=== PATIENT | male | born 2000 | race Two or more races ===

== ENCOUNTER 2022-03-11 08:02 | Emergency (ER) | payer OTHER ==
[~2022-03-11] VITALS: Ht 182.9 cm; Wt 104.0 kg
[2022-03-11 08:47] VITALS: BP 123/67
[2022-03-11 08:59] LABS: Urine Bacteria NONE SEEN /hpf (None Seen); Urine Blood Negative /uL (Negative); Urine Specific Gravity 1.019 (1.001-1.035); Urine WBC <1 /hpf (0 - 3)
[2022-03-11] MEDS ORDERED: KETOROLAC TROMETH 60MG/2ML VIAL IM ONE (09:00)
[2022-03-11] MEDS ORDERED: IBUP800T27 PO (09:13)
[2022-03-11] MEDS ORDERED: METH750T22 PO (09:13)
== END 2022-03-11 09:17 | disposition home or self-care (01) ==
LOC: ER 08:02
DX: S39.012A Strain of muscle, fascia and tendon of lower back, initial encounter (principal); M62.838 Other muscle spasm; X58.XXXA Exposure to other specified factors, initial encounter; Y93.89 Activity, other specified; Y92.89 Other specified places as the place of occurrence of the external cause; Y99.8 Other external cause status
CPT/HCPCS: 81001; 96372; 99283; J1885

== ENCOUNTER 2022-03-26 11:57 | Emergency (ER) | payer OTHER ==
[~2022-03-26 11:57] MED LIST: IBUP800T27 PO; METH750T22 PO
== END 2022-03-26 12:08 | disposition left against medical advice (07) ==
LOC: ER 11:57
DX: M54.9 Dorsalgia, unspecified (principal); Z53.21 Procedure and treatment not carried out due to patient leaving prior to being seen by health care provider

== ENCOUNTER 2022-05-15 11:53 | Emergency (ER) | payer MEDICAID, OTHER ==
[~2022-05-15] VITALS: Ht 180.3 cm; Wt 104.9 kg
[2022-05-15 14:07] VITALS: BP 120/66
[2022-05-15] MEDS ORDERED: AMOX-277 PO (14:07)
[2022-05-15] MEDS ORDERED: PRED20TA2 PO (14:07)
== END 2022-05-15 14:30 | disposition home or self-care (01) ==
LOC: ER 11:53
DX: H66.91 Otitis media, unspecified, right ear (principal); J03.90 Acute tonsillitis, unspecified

== ENCOUNTER 2024-02-24 18:47 | Emergency (ER) | payer SELFPAY ==
[~2024-02-24] VITALS: Ht 185.4 cm; Wt 95.2 kg
[~2024-02-24 18:47] MED LIST changes: +AMOX875T4 PO; +IBUP-1456 PO; -IBUP800T27 PO; +METH-1182 PO; -METH750T22 PO; +PRED20TA2 PO
[2024-02-24 19:43] LABS: Basophils # (auto) 0 10 ^3/uL (0-0.2); Basophils % (auto) 0.1 % (0.0-2.0); Eosinophils # (auto) 0 10 ^3/uL (0-0.8); Eosinophils % (auto) 0.1 % (0.0-7.0); Hematocrit 42.8 % (41.0-53.0); Hemoglobin 15.4 g/dL (13.5-17.5); Lymphocytes # (auto) 1.5 10 ^3/uL (0.4-5.4); Lymphocytes % (auto) 16.1 % (10.0-50.0); Mean Corpuscular Hemoglobin 29.6 pg (28.0-32.0); Mean Corpuscular Hgb Conc. 35.9 g/dL (32.0-36.0); Mean Corpuscular Volume 82.5 fL (80.0-100.0); Monocytes # (auto) 0.8 10 ^3/uL (0-1.3); Monocytes % (auto) 8.8 % (0.0-12.0); Neutrophils % (auto) 74.9 % (37.0-80.0); Nucleated Red Blood Cells % 0.1 %; Platelet Count (auto) 267 10^3/uL (140-450); Red Blood Cells 5.18 10^6/uL (4.5-5.90); Red Cell Distribution Width 13.5 % (11.8-14.3); White Blood Cell 9.4 10^3/uL (4.4-10.8)
[2024-02-24 19:58] LABS: Alanine Aminotransferase 19 U/L (7-40); Albumin 4.9 g/dL (3.2-4.8); Alkaline Phosphatase 58 U/L (46-116); Anion Gap 10 (5-15); Aspartate Aminotransferase 14 U/L (13-40); BUN/Creatinine Ratio 7.4 (10.0-20.0); Blood Urea Nitrogen 7 mg/dL (9-23); Calcium 9.9 mg/dL (8.7-10.4); Carbon Dioxide 23 mmol/L (20-30); Chloride 105 mmol/L (98-107); Glucose 111 mg/dL (74-106); Potassium 3.3 mmol/L (3.5-5.1); Sodium 138 mmol/L (136-145)
[2024-02-24 19:59] LABS: Bilirubin, Total 0.5 mg/dL (0.2-1.0); Total Protein 8.2 g/dL (5.7-8.2)
[2024-02-24] MEDS: KETOROLAC TROMETH 30 MG/ML 1ML VIAL IV ONE (21:04)
[2024-02-24] MEDS: ONDANSETRON HCL 4 MG/2 ML VIAL IV ONE (21:04)
[2024-02-24] MEDS: SODIUM CHLORIDE 0.9% 1,000 ML IV ONE ×2 (21:04→22:02)
[2024-02-24] MEDS: FAMOTIDINE (10MG/ML) 2ML VL IV ONE (21:04)
[2024-02-24 21:11] VITALS: PULSE 74; RESP 16; O2SAT 99
[2024-02-24] MEDS: MORPHINE SULFATE 4 MG/ML SYR/VIAL IV ONE (22:14)
[2024-02-24 22:17] VITALS: O2SAT 99
[2024-02-24 22:29] VITALS: BP 128/76; PULSE 72; RESP 16
[2024-02-24] MEDS ORDERED: ZOFR4T PO (22:58)
== END 2024-02-24 22:59 | disposition home or self-care (01) ==
LOC: ER 18:47
DX: K52.9 Noninfective gastroenteritis and colitis, unspecified (principal); R10.13 Epigastric pain; R11.2 Nausea with vomiting, unspecified; F15.90 Other stimulant use, unspecified, uncomplicated; Z79.899 Other long term (current) drug therapy
CPT/HCPCS: 36415; 80053; 83690; 85025; 96361; 96374; 96375; 99284; J1885; J2270; J2405; J3490; J7030